=== PATIENT | male | born 1945 | race Caucasian/White ===

== ENCOUNTER 2017-11-29 23:58 | Emergency (ER) | payer OTHER, MEDICARE ==
[~2017-11-29] VITALS: Ht 177.8 cm; Wt 74.8 kg
[2017-11-30] MEDS ORDERED: AMLO5 PO (00:01)
[2017-11-30] MEDS ORDERED: SERT50 PO (00:01)
[2017-11-30] MEDS ORDERED: CYAN1000I IM (00:01)
[2017-11-30] MEDS ORDERED: Solaraze100 GM TP (00:02)
[2017-11-30] MEDS ORDERED: HYDCHL12.5 PO (00:02)
[2017-11-30] MEDS ORDERED: TADA10TA PO (00:03)
[2017-11-30] MEDS ORDERED: MUSE500 MCG UR (00:03)
[2017-11-30] MEDS ORDERED: HYDR1TAB94 PO (00:04)
[2017-11-30] MEDS ORDERED: ERGOCAL2500 UNIT PO (00:04)
[2017-11-30] MEDS ORDERED: VITAMIN D250000 UNIT PO (00:05)
== END 2017-11-30 01:29 | disposition home or self-care (01) ==
LOC: ER 23:58
DX: R53.1 Weakness (principal); I10 Essential (primary) hypertension; F32.9 Major depressive disorder, single episode, unspecified; Z79.899 Other long term (current) drug therapy
CPT/HCPCS: 99283